=== PATIENT | female | born 1995 | race Caucasian/White ===

== ENCOUNTER 2017-12-03 10:08 | Emergency (ER) | payer OTHER ==
[~2017-12-03] VITALS: Ht 162.6 cm; Wt 120.0 kg
[2017-12-03] MEDS ORDERED: AMOXICILLIN500 M2 PO (10:21)
[2017-12-03] MEDS ORDERED: TORADOL PO (10:21)
[2017-12-03 10:30] VITALS: BP 132/80
== END 2017-12-03 10:33 | disposition home or self-care (01) | DRG 159 ==
LOC: ED 10:08
DX: K08.89 Other specified disorders of teeth and supporting structures (principal); S02.5XXA Fracture of tooth (traumatic), initial encounter for closed fracture; X58.XXXA Exposure to other specified factors, initial encounter; Y93.89 Activity, other specified; Y92.009 Unspecified place in unspecified non-institutional (private) residence as the place of occurrence of the external cause

== ENCOUNTER 2018-02-25 10:04 | Emergency (ER) | payer OTHER ==
[~2018-02-25] VITALS: Ht 162.6 cm; Wt 100.0 kg
[~2018-02-25 10:04] MED LIST: AMOXICILLIN500 M2 PO; TORADOL PO
[2018-02-25 11:42] LABS: INFLUENZA A NONE DETECTED (NONE DETECT); INFLUENZA B NONE DETECTED (NONE DETECT)
[2018-02-25] MEDS ORDERED: CLARITIN10 M1 PO (11:48)
[2018-02-25] MEDS ORDERED: AMOXICILLIN500 MG PO (11:48)
[2018-02-25 12:11] VITALS: BP 138/81
== END 2018-02-25 12:11 | disposition home or self-care (01) | DRG 153 ==
LOC: ED 10:04
PROVIDERS: Emergency Medicine
DX: J02.0 Streptococcal pharyngitis (principal); J45.909 Unspecified asthma, uncomplicated

== ENCOUNTER 2018-03-25 11:14 | Emergency (ER) | payer OTHER ==
[~2018-03-25] VITALS: Ht 162.6 cm; Wt 122.0 kg
[~2018-03-25 11:14] MED LIST changes: +AMOXICILLIN500 MG PO; +CLARITIN10 M1 PO
[2018-03-25] MEDS ORDERED: IBUPROFEN600 MG PO (12:13)
[2018-03-25] MEDS ORDERED: PENICILLN VK500 MG PO (12:15)
[2018-03-25 12:20] VITALS: BP 135/66
== END 2018-03-25 12:20 | disposition home or self-care (01) | DRG 159 ==
LOC: ED 11:14
DX: K02.9 Dental caries, unspecified (principal); F17.210 Nicotine dependence, cigarettes, uncomplicated; J45.909 Unspecified asthma, uncomplicated; K08.89 Other specified disorders of teeth and supporting structures

== ENCOUNTER 2018-11-03 10:36 | Emergency (ER) | payer MEDICAID ==
[~2018-11-03] VITALS: Ht 162.6 cm; Wt 118.0 kg
[~2018-11-03 10:36] MED LIST changes: +IBUPROFEN600 MG PO; +PENICILLN VK500 MG PO
[2018-11-03] MEDS ORDERED: VENTOLIN HFA IN (11:36)
[2018-11-03] MEDS ORDERED: TESSALON PERLE100 MG PO (11:36)
[2018-11-03 11:41] VITALS: BP 143/74
== END 2018-11-03 12:05 | disposition home or self-care (01) ==
LOC: ED 10:36
DX: B34.9 Viral infection, unspecified (principal); J02.9 Acute pharyngitis, unspecified; J45.909 Unspecified asthma, uncomplicated; F17.210 Nicotine dependence, cigarettes, uncomplicated; R05 Cough

== ENCOUNTER 2019-09-07 08:58 | Emergency (ER) | payer MEDICAID ==
[~2019-09-07] VITALS: Ht 162.6 cm; Wt 126.0 kg
[~2019-09-07 08:58] MED LIST changes: +TESSALON PERLE100 MG PO; +VENTOLIN HFA IN
[2019-09-07] MEDS ORDERED: PROVENTIL0.083 % IN (10:23)
[2019-09-07] MEDS ORDERED: TAM75CAP PO (10:23)
[2019-09-07] MEDS ORDERED: PREDNISONE50 MG PO (10:23)
[2019-09-07] MEDS ORDERED: PROAIR HFA108 MCG/AC PO (10:23)
[2019-09-07 10:32] VITALS: BP 136/66
[2019-11-03] MEDS ORDERED: TAM75CAP PO (19:02)
== END 2019-09-07 10:41 | disposition home or self-care (01) ==
LOC: ED 08:58
DX: J11.1 Influenza due to unidentified influenza virus with other respiratory manifestations (principal); J45.909 Unspecified asthma, uncomplicated; Z33.1 Pregnant state, incidental

== ENCOUNTER 2019-11-03 | Emergency (ER) | payer MEDICAID ==
[~2019-11-03] MED LIST changes: +PREDNISONE50 MG PO; +PROAIR HFA108 MCG/AC PO; +PROVENTIL0.083 % IN; +TAM75CAP PO
[2019-11-03] MEDS ORDERED: TAM75CAP PO ×2 (19:02)
== END 2019-11-03 19:15 | disposition home or self-care (01) ==
DX: O99.513 Diseases of the respiratory system complicating pregnancy, third trimester (principal); J11.1 Influenza due to unidentified influenza virus with other respiratory manifestations; J45.901 Unspecified asthma with (acute) exacerbation; Z3A.30 30 weeks gestation of pregnancy

== ENCOUNTER 2020-07-17 10:48 | Emergency (ER) | payer MEDICAID ==
[~2020-07-17] VITALS: Ht 160 cm; Wt 121.8 kg
[2020-07-17 11:55] VITALS: BP 130/83
== END 2020-07-17 12:00 | disposition left against medical advice (07) ==
LOC: ED 10:48
DX: R21 Rash and other nonspecific skin eruption (principal); L29.9 Pruritus, unspecified; J45.909 Unspecified asthma, uncomplicated; Z91.19 Patient's noncompliance with other medical treatment and regimen

== ENCOUNTER 2020-07-25 10:20 | Emergency (ER) | payer MEDICAID ==
[~2020-07-25] VITALS: Ht 160 cm; Wt 108.0 kg
[2020-07-25] MEDS ORDERED: PREDNISONE50 MG PO (10:52)
[2020-07-25] MEDS ORDERED: ALL DAY10 MG PO (10:52)
[2020-07-25 11:00] VITALS: BP 168/80
== END 2020-07-25 11:00 | disposition home or self-care (01) ==
LOC: ED 10:20
DX: L50.0 Allergic urticaria (principal); E66.01 Morbid (severe) obesity due to excess calories; J45.909 Unspecified asthma, uncomplicated; F17.200 Nicotine dependence, unspecified, uncomplicated